=== PATIENT | male | born 1955 | race Hispanic/Latino ===

== ENCOUNTER 2024-06-03 22:17 | Emergency (ER) | payer OTHER ==
--- OUTSIDE RECORDS SUMMARY | 2024-06-03 22:20 | XMS REPORT | Continuity of Care Document ---
Author Name Unknown Address [address] [facility] [address] [place] [address] [facility] thconnect Address [address] [facility] [address] [place] [address] Care Team Providers Care Environmental Law Professor Name Role Phone PCP, PATIENT DOES NOT HAVE A Primary Care Physic vicky LUKAS Lamas Attending Clinician Unavailable Annika Matamoros DO Attending Clinician [phone] Payers Payer Name Policy Type Policy Number Effective Date Expirati on Date Source SELF-PAY CI [id number] OTHER CI [id number] [facility] [id number] 2022 00:00:00 COMMERCIAL NON-CONTRACT GENERIC [id number] 2017 00:00:00 Problems Condition Name Condition Details Condition Category Status Onset Date Resolution Date Last Treatment Date Treating Clinician Comments Source No known active problems No known active problems Disease [facility] Allergies, Adverse Reactions, Alerts Allergy Name Allergy Type Status Severity Reaction(s) Onset Date Inactive Date Treating Clinician Comments Source Sulfa (Sulfona mide Antibiot ics) Propensi ty to adverse reaction s Active Hives 07-31 00:00: 00 [facility] SULFA (SULFONA MIDE ANTIBIOT ICS) Drug Class Active Hives 07-31 00:00: 00 [facility] Social History Social Habit Start Date Stop Date Quantity Comments Source Sex Assigned At [facility] Exposure to SARS-CoV-2 (event) Not sure [facility] Smoking Status Start Date Stop Date Source Unknown if ever smoked [facility] Medications Ordered Medication Name Filled Medication Name Start Date Stop Date Current Medication? Ordering Clinician Indication Dosage Frequency Signature (SIG) Comments Components Source cyclobenzap rine 10 mg tablet 2019-11 00:00: 00 Yes [id number] 10mg Take 1 tablet by mouth 3 (three) times daily as needed for Muscle Spasms. [facility] metFORMIN 500 mg tablet 2016-11 00:00: 00 Yes 500mg Take 1 tablet by mouth 2 (two) times daily. [facility] loratadine 10 mg tablet 07-31 00:00: 00 Yes 10mg Take 1 tablet by mouth daily. [facility] acetaminoph en-codeine (TYLENOL-CO DEINE #3) 300-30 mg tablet 08-08 00:00: 00 Yes 1{tbl} Take 1 tablet by mouth every 6 (six) hours as needed for Pain (scale 4-6) (for cough). [facility] Vital Signs Vital Name Observation Time Observation Value Comments S ource Systolic blood pressure 2020-11-26 12:00:00 154 mm[Hg] [facility] Diastolic blood pressure 2020-11-26 12:00:00 93 mm[Hg] [facility] Heart rate 2020-11-26 12:00:00 85 /min [facility] Body temperature 2020-11-26 12:00:00 36.83 [place] [facility] Respiratory rate 2020-11-26 12:00:00 18 /min [facility] Body height 2020-11-26 12:00:00 180.3 cm [facility] Body weight 2020-11-26 12:00:00 113.399 kg [facility] BMI 2020-11-26 12:00:00 34.87 kg/m2 [facility] Oxygen saturation in Arterial blood by Pulse oximetry 2020-11-26 12:00:00 96 /min [facility] Procedures Procedure Date / Time Performed Performing Clinicia n Source NOTICE OF PRIVACY PRACTICES 2020-11-26 11:57:24 Doctor Unassigned, [place] [facility] CONSENT/REFUSAL FOR DIAGNOSIS AND TREATMENT 2020-11-26 11:56:34 Doctor Unassigned, [place] [facility] Encounters Start Date/Time End Date/Time Encounter Type Admission Type Attending [facility] Care Department Encounter ID Source 2023-09-11 07:55:01 Outpatient IBNS [facility] [id number] [facility] 2023-03-20 19:27:14 Outpatient IBNS IB [id number] - [id number] [facility] 2024-03-24 05:20:00 2024-03-24 05:20:00 Outpatient NPI NPI [id number] 2023-09-11 05:40:00 2023-09-11 05:40:00 Outpatient NPI NPI [id number] 2023-04-23 09:30:00 2023-04-23 09:30:00 Outpatient [facility] [id number] [facility] 2020-11-26 06:05:00 2020-11-26 06:57:00 Emergency Annika Matamoros [facility] [id number] [facility] 2020-11-26 05:57:00 2020-11-26 05:57:00 Emergency X [facility] ERT [id number] [facility]
[2024-06-04] MEDS ORDERED: ONDANSETRON 4 MG/2 ML VIAL ONE (02:37)
[2024-06-04] MEDS ORDERED: FENTANYL CITR 100 MCG/2 ML ONE (02:37)
[2024-06-04 02:57] LABS: Absolute Eosinophils 0.2 K/uL (0-0.5); Absolute Lymphocytes (CBC) 2.5 K/uL (0.7-4.9); Absolute Monocytes 0.7 K/uL (0.1-1.3); Basophils % 0.6 % (0-1.3); Eosinophils % 2.4 % (0-4.4); Hematocrit 45.1 % (39.6-49.0); Hemoglobin 14.7 g/dL (13.6-17.9); Lymphocytes % 29.5 % (15.3-44.8); MCH 30.9 pg (27.0-35.0); MCHC 32.6 g/dL (32.0-36.0); MCV 94.6 fL (80-100); MPV 9.2 fL (7.6-11.3); Monocytes % 8.8 % (3.3-12.3); Neutrophils % 58.7 % (41.7-73.7); Platelets 201 thou/uL (152-406); RBC Red Blood Cell Count 4.77 M/uL (4.33-5.43); Red Cell Distribution Width 13.6 % (12.1-15.2)
[2024-06-04 03:07] LABS: Albumin/Globulin Ratio 1.1 (1.1-1.8); Anion Gap 9.9 mEq/L (5.0-15.0); Bilirubin Total 0.7 mg/dL (0.2-1.0); Globulin 3.6 g/dL (2.3-3.5); Potassium 3.9 mEq/L (3.5-5.1); Protein, Total 7.6 g/dL (6.4-8.2)
[2024-06-04 03:18] LABS: Specific Gravity 1.026 (1.005-1.030); Sqamous Epithelial None Seen /HPF (None Seen); Urine Bacteria None Seen /HPF (<20); Urine Bilirubin NEGATIVE (Negative); Urine Blood Negative (Negative); Urine Clarity Clear (Clear); Urine Color Light-Yellow (Yellow); Urine Culture Reflex Order NOT NEEDED; Urine Glucose 4+ (Over) (Negative); Urine Ketones TRACE (Negative); Urine Microscopic Reflex YN ORDER UMIC; Urine Mucus Slight /HPF (None Seen); Urine Nitrite NEGATIVE (Negative); Urine Protein TRACE (Negative); Urine RBC <5 /HPF (None Seen); Urine Urobilinogen Normal (Normal); Urine WBC <5 /HPF (<5)
[2024-06-04] MEDS ORDERED: NA CHLORIDE 0.9% 1,000 ML ONE (03:23)
--- NOTE | 2024-06-04 04:31 | EDPHYS ---
Physician Documentation [facility] Name: Aldair Daniels Age: 69 yrs Sex: Male : 1955 Arrival Date: 06/03/2024 Time: 22:17 Bed 11 Private MD: ED Physician Edwin West HPI: 06/04 01:14 This 69 yrs old Male presents to ER via Ambulatory with complaints of Back eliseo Injury, Back Pain. 01:14 The patient presents with pain that is acute, and a laceration, 3 cm(s). eliseo 01:26 The symptoms are located in the low back, lumbar area, right mid back and right low eliseo back. Onset: The symptoms/episode began/occurred 2 day(s) ago. The pain radiates to the lumbar area, right mid back and right low back. Associated signs and symptoms: Pertinent positives: abdominal pain. Modifying factors: The patient symptoms are alleviated by remaining still, rest, the patient symptoms are aggravated by bending, movement. Severity of symptoms: At their worst the symptoms were moderate, in the emergency department the symptoms are unchanged. The patient has not experienced similar symptoms in the past. Historical: - Allergies: 06/03 22:50 Sulfa (Sulfonamide Antibiotics); tl4 - Home Meds: 22:53 metformin 1,000 mg Oral tablet 1 tab 2 times per day [Active]; glimepiride 4 mg Oral tl4 tablet 1 tab 2 times per day [Active]; finasteride 5 mg oral tablet 1 tab daily [Active]; losartan-hydrochlorothiazide 50-12.5 mg oral tablet daily [Active]; - PMHx: 22:53 Diabetes mellitus; Hypertensive disorder; Enlarged Prostate; tl4 - Immunization history:: Adult Immunizations unknown. - Infectious Disease History:: Denies. - Social history:: Smoking status: Patient denies any tobacco usage or history of. - Family history:: not pertinent. ROS: 06/04 01:26 Constitutional: Negative for fever, chills, and weight loss, Eyes: Negative for injury, eliseo pain, redness, and discharge, ENT: Negative for injury, pain, and discharge, Neck: Negative for injury, pain, and swelling, Cardiovascular: Negative for chest pain, palpitations, and edema, Respiratory: Negative for shortness of breath, cough, wheezing, and pleuritic chest pain, : Negative for injury, bleeding, discharge, and swelling, Skin: Negative for injury, rash, and discoloration, Neuro: Negative for headache, weakness, numbness, tingling, and seizure, Psych: Negative for depression, anxiety, suicide ideation, homicidal ideation, and hallucinations, Allergy/Immunology: Negative for hives, rash, and allergies, Endocrine: Negative for neck swelling, polydipsia, polyuria, polyphagia, and marked weight changes, Hematologic/Lymphatic: Negative for swollen nodes, abnormal bleeding, and unusual bruising, Abdomen/GI: Positive for abdominal pain, of the anterior aspect of right lateral abdomen, posterior aspect of right lateral abdomen, right upper quadrant and right lower quadrant, MS/extremity: Positive for decreased range of motion, pain, of the anterior aspect of right shoulder and posterior aspect of right shoulder, Exam: 01:26 Constitutional: This is a well developed, well nourished patient who is awake, alert, eliseo and in no acute distress. Head/Face: Normocephalic, atraumatic. Eyes: Pupils equal round and reactive to light, extra-ocular motions intact. Lids and lashes normal. Conjunctiva and sclera are non-icteric and not injected. Cornea within normal limits. Periorbital areas with no swelling, redness, or edema. ENT: Nares patent. No nasal discharge, no septal abnormalities noted. Tympanic membranes are normal and external auditory canals are clear. Oropharynx with no redness, swelling, or masses, exudates, or evidence of obstruction, uvula midline. Mucous membranes moist. Neck: Trachea midline, no thyromegaly or masses palpated, and no cervical lymphadenopathy. Supple, full range of motion without nuchal rigidity, or vertebral point tenderness. No Meningismus. Chest/axilla: Normal chest wall appearance and motion. Nontender with no deformity. No lesions are appreciated. Cardiovascular: Regular rate and rhythm with a normal S1 and S2. No gallops, murmurs, or rubs. Normal PMI, no JVD. No pulse deficits. Respiratory: Lungs have equal breath sounds bilaterally, clear to auscultation and percussion. No rales, rhonchi or wheezes noted. No increased work of breathing, no retractions or nasal flaring. Male : Normal genitalia with no discharge or lesions. Skin: Warm, dry with normal turgor. Normal color with no rashes, no lesions, and no evidence of cellulitis. Neuro: Awake and alert, GCS 15, oriented to person, place, time, and situation. Cranial nerves II-XII grossly intact. Motor strength 5/5 in all extremities. Sensory grossly intact. Cerebellar exam normal. Normal gait. Psych: Awake, alert, with orientation to person, place and time. Behavior, mood, and affect are within normal limits. 01:26 Abdomen/GI: Inspection: abdomen appears normal, Bowel sounds: normal, Palpation: mild abdominal tenderness, moderate abdominal tenderness, in the anterior aspect of right lateral abdomen, posterior aspect of right lateral abdomen, right upper quadrant and right lower quadrant, Liver: no appreciated palpable abnormalities, Hernia: not appreciated, 01:26 Musculoskeletal/extremity: Extremities: grossly normal except: noted in the posterior aspect of right shoulder and anterior aspect of right shoulder: decreased ROM, ROM: limited active range of motion, limited passive range of motion, Circulation is intact in all extremities. Sensation intact. Compartment Syndrome exam of affected extremity: is normal. Vital Signs: 06/03 22:47 BP 124 / 74; Pulse 85; Resp 20; Temp 98.5(TE); Pulse Ox 96% on R/A; Weight 112.49 kg; tl4 Height 5 ft. 11 in. ; Pain 8/10; 22:47 Body Mass Index 34.59 (112.49 kg, 180.34 cm) tl4 22:47 Pain Scale: Adult tl4 MDM: 23:14 Patient medically screened. [facility] 06/04 00:54 Order name: CBC with Diff; Complete Time: 03:36 [facility] 06/04 00:54 Order name: Comprehensive Metabolic Panel; Complete Time: 03:17 eliseo 06/04 00:54 Order name: Urinalysis w/ reflexes; Complete Time: 03:36 [facility] 06/04 04:03 Order name: CREATININE WHOLE BLOOD EDHI 06/04 00:54 Order name: CT Traumagram (Head C Spine CAP W Con) [facility] 06/04 01:35 Order name: Sling; Complete Time: 05:13 eliseo 06/04 01:36 Order name: Ice pack; Complete Time: 05:13 eliseo Administered Medications: 06/04 03:10 Drug: Ondansetron IVP 4 mg IVP once; over 2 minutes Route: IVP; Site: right antecubital;vc1 05:11 Follow up: Response: No adverse reaction; Marked relief of symptoms vc1 03:38 Drug: Ketorolac IVP 15 mg IVP once Route: IVP; Site: right antecubital; vc1 05:11 Follow up: Response: No adverse reaction; Marked relief of symptoms vc1 03:38 Drug: fentaNYL (PF) IVP 50 mcg IVP once Route: IVP; Site: right antecubital; vc1 05:11 Follow up: Response: No adverse reaction; Marked relief of symptoms vc1 03:38 Drug: NS 0.9% IV 1000 ml IV at 1 bolus Per protocol; 1000 mL bolus Route: IV; Rate: 1 vc1 bolus; Site: right antecubital; 05:11 Follow up: IV Status: Completed infusion vc1 Disposition Summary: 06/04/24 04:30 Discharge Ordered Notes: Location: Home eliseo Problem: new eliseo Symptoms: have improved eliseo Condition: Stable eliseo Diagnosis - Fall on same level, unspecified eliseo - Pain in right shoulder eliseo - Abdominal tenderness eliseo - Low back pain eliseo - Strain of muscle and tendon of front wall of thorax eliseo - Strain of muscle and tendon of back wall of thorax eliseo - Type 2 diabetes mellitus with hyperglycemia eliseo Followup: eliseo - With: Private Physician - When: 2 - 3 days - Reason: Recheck today's complaints, Continuance of care, Re-evaluation by your physician Followup: eliseo - With: Hal De La Garza MD - When: 2 - 3 days - Reason: Recheck today's complaints, Re-evaluation by your physician Discharge Instructions: - Discharge Summary Sheet eliseo - Abdominal Pain, Adult eliseo - Musculoskeletal Pain eliseo - Shoulder Pain eliseo - Shoulder Pain, [id number] eliseo - Abdominal Pain, Adult, [id number] eliseo - Diabetes Mellitus and Nutrition, Adult eliseo Forms: - Medication Reconciliation Form eliseo - Antibiotic Education eliseo - Prescription Opioid Use eliseo - Patient Portal Instructions [facility] - Leadership Thank You Letter [facility] Prescriptions: - acetaminophen-codeine 300-30 mg Oral tablet - take 2 tablet ORAL route every 6 hours as needed for pain; 20 tablet; Refills: eliseo 0, Product Selection Permitted - Ibuprofen 600 mg Oral tablet - take 1 tablet ORAL route every 8 hours As needed take with food; 21 tablet; eliseo Refills: 0, Product Selection Permitted Signatures: Dispatcher [employer] EDMS Edwin West MD MD cha Calcote, Vanessa RN RN vc1 Jonny Casas RN RN tl4 Corrections: (The following items were deleted from the chart) 00:55 00:55 CBC+H.LAB.BRZ ordered. EDMS EDMS 00:55 00:55 COMPREHENSIVE METABOLIC PANEL+C.LAB.BRZ ordered. EDMS EDMS 00:55 00:55 Urinalysis+U.LAB.BRZ ordered. EDMS EDMS 00:55 00:55 Shoulder Right 2 View+RAD.RAD.BRZ ordered. EDMS EDMS 00:55 00:55 Head C Spine CAP W Con+CT.RAD.BRZ ordered. EDMS EDMS
--- NOTE | 2024-06-04 04:31 | ER ---
Nurse's Notes [facility] Name: Aldair Daniels Age: 69 yrs Sex: Male : 1955 Arrival Date: 06/03/2024 Time: 22:17 Bed 11 Private MD: Diagnosis: Fall on same level, unspecified;Pain in right shoulder;Abdominal tenderness;Low back pain;Strain of muscle and tendon of front wall of thorax;Strain of muscle and tendon of back wall of thorax;Type 2 diabetes mellitus with hyperglycemia Presentation: 06/03 22:47 Chief complaint: Patient states: Pt states he slipped on water and fell onto his back tl4 and shoulder yesterday. Pt states pain is getting worse. Coronavirus screen: At this time, the client does not indicate any symptoms associated with coronavirus-19. Ebola Screen: No symptoms or risks identified at this time. Initial Sepsis Screen: Does the patient meet any 2 criteria? No. Patient's initial sepsis screen is negative. Does the patient have a suspected source of infection? No. Patient's initial sepsis screen is negative. Risk Assessment: Do you want to hurt yourself or someone else? Patient reports no desire to harm self or others. Onset of symptoms was June 02, 2024. 22:47 Method Of Arrival: Ambulatory tl4 22:47 Acuity: DILAN 3 tl4 Triage Assessment: 22:50 General: Appears uncomfortable, Behavior is cooperative. Pain: Complains of pain in tl4 back. EENT: No signs and/or symptoms were reported regarding the EENT system. Neuro: Level of Consciousness is awake, alert, obeys commands, Oriented to person, place, time, situation, Moves all extremities. Cardiovascular: Capillary refill < 3 seconds Patient's skin is warm and dry. Respiratory: Airway is patent Respiratory effort is even, unlabored, Respiratory pattern is regular, symmetrical. GI: No signs and/or symptoms were reported involving the gastrointestinal system. : No signs and/or symptoms were reported regarding the genitourinary system. Derm: No signs and/or symptoms reported regarding the dermatologic system. Musculoskeletal: Reports pain in back. Historical: - Allergies: 22:50 Sulfa (Sulfonamide Antibiotics); tl4 - Home Meds: 22:53 metformin 1,000 mg Oral tablet 1 tab 2 times per day [Active]; glimepiride 4 mg Oral tl4 tablet 1 tab 2 times per day [Active]; finasteride 5 mg oral tablet 1 tab daily [Active]; losartan-hydrochlorothiazide 50-12.5 mg oral tablet daily [Active]; - PMHx: 22:53 Diabetes mellitus; Hypertensive disorder; Enlarged Prostate; tl4 - Immunization history:: Adult Immunizations unknown. - Infectious Disease History:: Denies. - Social history:: Smoking status: Patient denies any tobacco usage or history of. - Family history:: not pertinent. Screenin/07 01:00 [facility] ED Fall Risk Assessment (Adult) History of falling in the last 3 months, vc1 including since admission Yes- single mechanical fall (1 pt) Confusion or Disorientation No (0 pts) Intoxicated or Sedated No (0 pts) Impaired Gait No (0 pts) Mobility Assist Device Used No (0 pt) Altered Elimination No (0 pt) Score/Fall Risk Level 0 - 2 = Low Risk Oriented to surroundings, Maintained a safe environment, Educated pt \T\ family on fall prevention, incl call for assistance when getting out of bed. Abuse screen: Denies threats or abuse. Nutritional screening: No deficits noted. Tuberculosis screening: No symptoms or risk factors identified. Assessment: 01:00 General: Appears in no apparent distress. comfortable, Behavior is calm, cooperative, vc1 appropriate for age. Pain: Complains of pain in posterior aspect of right shoulder and anterior aspect of right shoulder and posterior aspect of right lateral abdomen and anterior aspect of right lateral abdomen. Neuro: Level of Consciousness is awake, alert, obeys commands, Oriented to person, place, time, situation, Appropriate for age. Cardiovascular: Patient's skin is warm and dry. Respiratory: Airway is patent Respiratory effort is even, unlabored, Respiratory pattern is regular, symmetrical, Breath sounds are clear bilaterally. GI: Abdomen is round non-distended, Bowel sounds present X 4 quads. Abd is soft and non tender. : No deficits noted. No signs and/or symptoms were reported regarding the genitourinary system. EENT: No deficits noted. No signs and/or symptoms were reported regarding the EENT system. Derm: Skin is intact, is healthy with good turgor, Skin is dry, Skin is normal. Musculoskeletal: Reports pain in posterior aspect of right shoulder and anterior aspect of right shoulder and posterior aspect of right lateral abdomen and anterior aspect of right lateral abdomen. 05:20 Reassessment: Patient appears in no apparent distress at this time. Patient and/or vc1 family updated on plan of care and expected duration. Pain level reassessed. Patient is alert, oriented x 3, equal unlabored respirations, skin warm/dry/pink. Patient states feeling better. Patient states symptoms have improved. Vital Signs: 06/03 22:47 BP 124 / 74; Pulse 85; Resp 20; Temp 98.5(TE); Pulse Ox 96% on R/A; Weight 112.49 kg; tl4 Height 5 ft. 11 in. ; Pain 8/10; 22:47 Body Mass Index 34.59 (112.49 kg, 180.34 cm) tl4 22:47 Pain Scale: Adult tl4 ED Course: 22:23 Patient arrived in ED. gm2 22:50 Triage completed. tl4 22:52 Arm band placed on right wrist. tl4 23:13 Edwin West MD is Attending Physician. eliseo 06/04 02:27 Inserted saline lock: 20 gauge in right forearm, using aseptic technique. Blood oe collected. 02:34 Urinalysis w/ reflexes Sent. oe 02:34 Comprehensive Metabolic Panel Sent. oe 02:34 CBC with Diff Sent. oe 03:04 CT Traumagram (Head C Spine CAP W Con) In Process Unspecified. EDMS 04:30 Hal De La Garza MD is Referral Physician. eliseo 05:14 No provider procedures requiring assistance completed. IV discontinued, intact, vc1 bleeding controlled, No redness/swelling at site. Pressure dressing applied. Administered Medications: 03:10 Drug: Ondansetron IVP 4 mg IVP once; over 2 minutes Route: IVP; Site: right antecubital;vc1 05:11 Follow up: Response: No adverse reaction; Marked relief of symptoms vc1 03:38 Drug: Ketorolac IVP 15 mg IVP once Route: IVP; Site: right antecubital; vc1 05:11 Follow up: Response: No adverse reaction; Marked relief of symptoms vc1 03:38 Drug: fentaNYL (PF) IVP 50 mcg IVP once Route: IVP; Site: right antecubital; vc1 05:11 Follow up: Response: No adverse reaction; Marked relief of symptoms vc1 03:38 Drug: NS 0.9% IV 1000 ml IV at 1 bolus Per protocol; 1000 mL bolus Route: IV; Rate: 1 vc1 bolus; Site: right antecubital; 05:11 Follow up: IV Status: Completed infusion vc1 Medication: 05:14 VIS not applicable for this client. vc1 Outcome: 04:30 Discharge ordered by . eliseo 05:14 Discharged to home ambulatory, vc1 05:14 Condition: good 05:14 Discharge instructions given to patient, Instructed on discharge instructions, follow up and referral plans. medication usage, Demonstrated understanding of instructions, follow-up care, medications, Prescriptions given X 2, 05:25 Patient left the ED. vc1 Signatures: Dispatcher [employer] EDMS Edwin West MD MD cha Espinosa, [place] oe Calcote, Vanessa RN RN vc1 Michelle Wagoner 2 Jonny Casas RN RN tl4
[2024-06-04 05:45] VITALS: BP 124/74; TEMP 98.5; O2SAT 96
--- NOTE | 2024-06-06 10:16 | RAD REPORT ---
EXAM DESCRIPTION: CT - Head C Spine Emre Justin - 06/04/2024 6:58 am CLINICAL HISTORY: TRAUMA COMPARISON: None available TECHNIQUE: Axial CT of the head obtained from the skull apex to the skull base without contrast. Axi al CT images of the cervical spine obtained without contrast. CT of the chest, abdomen and pelvis per formed following IV administration of iodinated contrast. This exam was performed according to our de partmental dose-optimization program, which includes automated exposure control, adjustment of the mA and/or kV according to patient size and/or use of iterative reconstruction technique. FINDINGS: Head CT: No acute intracranial hemorrhage identified. No mass, mass effect, shift of the midline, abnormal ext ra-axial fluid collection or CT evidence of acute ischemic change identified. The ventricular system and sulcal spaces are mildly enlarged compatible with mild cerebral atrophy. Scattered areas of hyp odensity throughout the supratentorial white matter are nonspecific and may be related to chronic sma ll vessel ischemic change. The visualized paranasal sinuses and the mastoids are clear. No skull fracture identified. Visualiz ed orbits and globes are unremarkable. Atherosclerotic calcification of the intracranial internal car otid arteries. Cervical CT : Alignment of the cervical spine is maintained without evidence of subluxation. The atlantoaxial, at lantodental, and occipitoatlantal intervals are preserved. No fracture identified. Vertebral body h eight preserved. Prevertebral soft tissues are unremarkable. [id number] multilevel loss of intervertebral disc height with endplate spondylosis, facet arthr opathy, and uncovertebral spurring. Posterior disc osteophyte complex at multiple levels mildly to mo derately encroach upon the anterior spinal canal. Mild neural foraminal narrowing. Visualized skull base is intact. No cervical lymphadenopathy. Chest: Thyroid: No abnormalities of the visualized thyroid. Great Vessels: Great vessels have normal anatomic configuration. Thoracic Aorta: No abnormalities of the thoracic aorta identified. Pulmonary arteries: No definite central filling defects. Heart: No cardiomegaly, significant pericardial effusion, or coronary artery atherosclerosis Lymph Nodes: No enlarged mediastinal lymph nodes identified. Esophagus: No abnormalities of the esophagus identified Other: No additional findings. Lungs: No airspace opacities identified. Calcified right lung granuloma. Pleura: No pleural effusion or pneumothorax. Trachea/Airways: No abnormalities of the visualized trachea or airways. Abdomen: Liver: Hepatomegaly with decreased density. Gallbladder: Prior cholecystectomy. Spleen, Pancreas, and Adrenal Glands: Splenomegaly. The pancreas and adrenal glands are unremarkabl e. Kidneys: No hydronephrosis or obstructing ureteral calculus. Bilateral nonobstructing nephrolithi asis. Vasculature: IVC is normal caliber. Aortoiliac atherosclerosis. The portal vein is patent. The prox imal visceral and renal arteries are patent. Stomach: The stomach and duodenum have normal course. Other: No free intraperitoneal air. No free fluid or lymphadenopathy. Pelvis: Bladder: Urinary bladder is unremarkable. Bowel: No dilated loops of large or small bowel. Moderate amount stool. Scattered diverticula of th e colon. Appendix: Normal appendix. Pelvis: Enlarged prostate. Bones: Multilevel endplate spondylosis, disc height narrowing, and facet arthropathy. IMPRESSION: 1. No acute intracranial abnormality identified. 2. No acute fracture or subluxation of the cervical spine. 3. No acute traumatic, inflammatory or obstructive process identified in the chest, abdomen, or pel vis. 4. Hepatosplenomegaly and hepatic steatosis. 5. Nonobstructing bilateral nephrolithiasis. 6. Diverticulosis without evidence of acute diverticulitis. 7. Enlarged prostate. Electronically signed by: Delgado Hope DO 06/04/2024 04:19 AM CDT [id number] Due to temporary technical issues with the PACS/Fluency reporting system, reports are being signed by the in house radiologist without review as a courtesy to ensure prompt reporting. The interpreting r adiologist is fully responsible for the content of the report.
== END 2024-06-04 05:25 | disposition home or self-care (01) ==
LOC: ER 22:17
DX: S29.011A Strain of muscle and tendon of front wall of thorax, initial encounter (principal); S29.012A Strain of muscle and tendon of back wall of thorax, initial encounter; M25.511 Pain in right shoulder; R10.819 Abdominal tenderness, unspecified site; E11.65 Type 2 diabetes mellitus with hyperglycemia; W18.30XA Fall on same level, unspecified, initial encounter
CPT/HCPCS: 96361; 85025; 81001; 36415; 82565; 80053; 70450; 72125; 71260; 74177; 96375; 96374; 99284; Q9967; J3010; J2405; J7030